=== PATIENT | female | born 1935 | race African-American/Black ===

== ENCOUNTER → 2022-10-26 | Outpatient (CLI) | payer MEDICARE ==
[~2022-10-26] MED LIST: GADOTERATE MEGLUMINE 5 MMOL/10 ML VIAL IV ONE
== END | disposition home or self-care (01) ==
LOC: MRI 09:55
PROVIDERS: ATTEND Neurological Surgery
DX: G31.9 Degenerative disease of nervous system, unspecified (principal); R90.82 White matter disease, unspecified; I67.82 Cerebral ischemia; R51.9 Headache, unspecified
CPT/HCPCS: 70553; A9577